=== PATIENT | female | born 1995 | race Caucasian/White ===

== ENCOUNTER 2017-09-01 11:46 | Inpatient (IN) | payer OTHER ==
[~2017-09-01] VITALS: Ht 157.5 cm; Wt 92.6 kg
[~2017-09-01 11:46] MED LIST: CYCLOBENZAPRINE10 MG PO; TRAMADOL HCL50 MG PO
--- NOTE | 2017-09-01 14:44 | NUR ---
PATIENT ADMITTED TO MED SURG. PATIENT REPORTS 4/10 EPIGASTRIC PAIN AND IS SLEEPY. SCD'S ARE ON. MOM IN ROOM WITH PATIENT. PATIENT HAS BEEN UP TO VOID AND HAS LR @ 125. PATIENT IS NOT NAUSEATED AT THIS TIME. DR. MOSQUEDA TO SEE PATIENT.
--- NOTE | 2017-09-01 15:28 | NUR ---
PATIENT GIVEN DILAUDID 0.5 FOR 7/10 EPIGASTRIC ABDOMINAL PAIN.
--- NOTE | 2017-09-01 17:35 | NUR ---
PATIENT RESTING IN BED, NPO, IVF, IV PAIN MEDICATIONS AND AWAITING DR. MOSQUEDA. PATIENT HAS BEEN WITHOUT NAUSEA. FAMILY IS IN ROOM. PATIENT HAS BEEN ABLE TO INTERMITTIANTLY NAP BETWEEN PAIN MEDICATION TIMES, PER MOM.
--- NOTE | 2017-09-01 17:45 | NUR ---
PT IS RESTING IN BED WITH CALL LIGHT IN REACH. PT IS ASKING ABOUT WHEN HER SURGERY WILL BE.
--- NOTE | 2017-09-01 18:39 | NUR ---
DR. MOSQUEDA IN TO SEE PATIENT. PATIENT MAY HAVE CLEAR LIQUIDS TONIGHT, NPO AT MIDNIGHT. PATIENT TO HAVE SURGERY TO FOLLOW TOMORROW.
--- NOTE | 2017-09-01 19:00 | NUR ---
SHIFT REPORT RECIEVED. PATIENT RESTING IN BED. FAMILY AT BEDSIDE. CALL LIGHT IN REACH.
--- NOTE | 2017-09-01 19:28 | NUR ---
PATIENT REPORTED 8/10 PAIN IN RUQ. PRN PAIN MEDS GIVEN PER ORDER BY BEHZAD RUEDA. CALL LIGHT IN REACH.
--- NOTE | 2017-09-01 19:59 | NUR ---
WENT OVER SURGERY CONSENT WITH PT. PT STATED UNDERSTANDING OF UPCOMING PROCEDURE. REQUESTED ICE WATER AND JELLO. RECEIVED BOTH, IS AWARE THAT SHE WILL NOT BE ABLE TO EAT OR DRINK AFTER MIDNIGHT. FRIEND ABI AT BEDSIDE. CALL LIGHT WITHIN REACH.
--- NOTE | 2017-09-01 20:16 | NUR ---
PT CALLED WANTING TO USE THE BATHROOM. AMBULATED WITHOUT COMPLAINTS OF DIZZINESS. VOIDING WITHOUT COMPLAINTS. STATED THAT HER PAIN IN RUQ IS "ALWAYS THERE" . CALL LIGHT WITH REACH. FRIEND AT BEDSIDE.
--- NOTE | 2017-09-01 20:58 | NUR ---
EVEING MEDS GIVEN PER ORDER. PATIENT AAOX3. PAIN IN RUQ AT 8/10, PRN PAIN MEDS GIVEN PER ORDER. LUNGS CLEAR, RR16. NO NAUSEA, BOWEL SOUNDS ACTIVE. IVF INFUSING, SITE WNL. FAMILY IS IN THE ROOM. PATIENT REQUESTED BROTH AND JELLO WHICH WERE GIVEN TO HER. NO FURTHER REQUEST, CALL LIGHT IN REACH.
--- NOTE | 2017-09-01 22:15 | NUR ---
PATIENT RESTING, EYES CLOSED. RR 14. MOTHER AT BEDSIDE. NO NEEDS AT THIS TIME. CALL LIGHT IN REACH.
--- NOTE | 2017-09-01 22:39 | NUR ---
PATIENT REQUESTED ASSISTANCE GOING TO THE BATHROOM. CORINA BELTRAN ASSISTED HER.
--- NOTE | 2017-09-01 22:57 | NUR ---
ASSISTED THE PATIENT ( STANDBY) TO THE BATHROOM AND BACK TO BED. CALL LIGHT WITHIN REACH.
--- NOTE | 2017-09-02 00:33 | NUR ---
PATIENT RESTING IN BED. TOOK ORAL FLUIDS FROM BEDSIDE. PATIENT HAS BEEN NPO SINCE BEFORE MIDNIGHT. REPORTED 9/10 PAIN, PRN PAIN MEDS GIVEN. NO FURTHER NEEDS AT THIS TIME. CALL LIGHT IN REACH.
--- NOTE | 2017-09-02 01:45 | NUR ---
PATIENT REQUESTED ASSISTANCE TO BATHROOM. PATIENT WAS SBA, APPEARED STEADY ON HER FEET. ASSISTED PATIENT BACK TO BED. REPORTED 8/10 PAIN, PRN PAIN MEDS GIVEN. PATIENT RESTING IN BED. CALL LIGHT IN REACH. SCDS IN PLACE. IVF INFUSING. NO FURTHER NEEDS AT THIS TIME.
--- NOTE | 2017-09-02 02:22 | NUR ---
NURSE NOTIFIED RE FABIENNEP.
--- NOTE | 2017-09-02 03:30 | NUR ---
PATIENT RESTING IN BED. 0200 VITALS FOUND AN ORAL TEMPURATURE OF 99.3. INSTRUCTED PATIENT TO SIT ON EDGE OF BED AND USE IS 5 TIMES. ORAL TEMPURATURE WAS 99.0. PATIENT REPORTED FEELING SLIGHTLY NAUSOUS. PRN ZOFRAN GIVEN PER ORDERS. PATIENT STATED THAT HER NAUSEA WAS IMPROVING AND SHE DID NOT FEEL LIKE SHE WAS GOING TO THROW UP. PATIENT STATES HER PAIN IS PRESENT BUT TOLERABLE AT THIS TIME. NO PRN PAIN MEDS REQUIRED AT THIS TIME. PATIENT LAYING BACK DOWN. CALL LIGHT IN REACH.
--- NOTE | 2017-09-02 04:14 | NUR ---
PATIENT RESTED ON AND OFF THROUGHOUT THE NIGHT. PAIN CONTROLLED, PRN PAIN MEDS GIVEN X4. PATIENT SLIGHTLY NAUSOUS AROUND 0320, PRN ZOFRAN GIVEN ONCE. NAUSEA RESOLVED. SBA W/AMBULATION. SCDS IN PLACE. IVF INFUSING. NPO AT MIDNIGHT.
--- NOTE | 2017-09-02 05:47 | NUR ---
PRE OP PROCEDURE CHECK LIST COMPLETED MUCH POSSIBLE. MORNING MEDICATIONS GIVEN PER ORDER. PATIENT PRE OP WIPE DOWM COMPLETED. PATIENTS PAPEROWRK PRINTED AND ATTACHED TO CHART FOR SURGERY. LR W/STRAIGHT TUBING HUNG. PATIENT DENIES ANY NAUSEA AT THIS TIME. PATIENT IS REQUESTING PAIN MEDICATION WHEN SHE IS BACK IN BED FROM USING THE RESTROOM.
--- NOTE | 2017-09-02 05:55 | NUR ---
PATIENT UP TO BATHROOM. STATES SHE IS FEELING NAUSOUS, PRN MEDS GIVEN. REATED PAIN AT 7/10, PRN PAIN MEDS GIVEN. PATIENT RESTING ON EDGE OF BED. WILL CONTINUE TO MONITOR.
--- NOTE | 2017-09-02 07:35 | NUR ---
REPORT RECIEVED FROM BEHZAD HAWKINS. PT UP IN THE BATHROOM DOING [place]. FAMILY IN ROOM. DENIES NEEDS ATT.
--- NOTE | 2017-09-02 08:21 | NUR ---
PT IN BED, FAMILY IN ROOM. DENIES QUESTIONS ABOUT PROCEDURE. WIPE DOWN DONE BY PT. LR HANGING. MEDS GIVEN.
--- NOTE | 2017-09-02 08:29 | NUR ---
pt off floor with kat emmanuel from surgery
--- NOTE | 2017-09-02 10:45 | NUR ---
PT AWAKE IN BED. DOING WELL. PICKED UP ROOM. GAVE PT STUFF TO DO HER SURGICAL WIPE DOWN. AM CARE DONE. CHANGED BEDDING AND EMTY GARBAGE.
--- NOTE | 2017-09-02 10:53 | NUR ---
[facility]02[facility]17 [facility] DECRE[facility] 6L VIA MASK.
--- NOTE | 2017-09-02 11:35 | NUR ---
PT TO FLOOR VIA STRETCHER WITH BEHZAD HAWLEY. PT AWAKE AND SLIGHTLY NAUSEOUS. PT DENIES PAIN ATT. FAMILY IN ROOM. ABLE TO SCOOT TO THE BED. IVF REATTACHED AND RUNNING WNL.
--- NOTE | 2017-09-02 12:29 | NUR ---
PT A LITTLE MORE AWAKE BUT STILL DROWSY. PT DENIES PAIN AND IS NO LONGER NAUSEOUS. FAMILY IN ROOM. VS STABLE. HAD PREVIOUSLY PLACED ON 1 L NC FOR DESATS WHILE SLEEPING. NOW REMOVED PT IS HOLDING HER SATS WITHOUT O2.
--- NOTE | 2017-09-02 14:11 | NUR ---
PT NOW EATING SOME TOMATO SOUP AND WILL BE GIVEN A PAIN PILL AFTER A FEW BITES. STATES THAT SHE FEELS SO MUCH BETTER AFTER SURGERY.
--- NOTE | 2017-09-02 14:52 | NUR ---
PT DOING WELL. FRESH ICE WATER. TOOK VITELS. TOOK TO BATHROOM.
--- NOTE | 2017-09-02 15:31 | NUR ---
PT EATING AND TAKING FLUIDS. TOLERATING WELL. RATES PAIN LOW AT 3/10
--- NOTE | 2017-09-02 17:02 | NUR ---
PT REPORTS MINIMAL PAIN AFTER ONE PERCOCET. DENIES CONCERNS ATT.
--- NOTE | 2017-09-02 18:18 | NUR ---
PT HAD SMALL AMT EMESIS AFTER SMELLING FOOD IN [place]. DENIES NEED FOR ZOFRAN. ASKED FOR TOMATO SOUP AGAIN.
--- NOTE | 2017-09-02 18:23 | NUR ---
PT HAD GOOD DAY. MINIMAL PAIN, GIVEN 1 PERCOCET. TOLERATING TOMATO SOUP. INDEPENDENT IN ROOM. DRESSING HAS SMALL AMT SHADOWING.
--- NOTE | 2017-09-02 19:10 | NUR ---
SHIFT REPORT RECIEVED. PATIENT RESTING IN BED. COMPLAINS OF NAUSEA AND PAIN. WARM BLANKET PROVIDED. WILL RETURN WITH PRN MEDS.
--- NOTE | 2017-09-02 19:48 | NUR ---
PRN PAIN MEDS GIVEN FOR PAIN RATED AT 8/10 IN ABD. PRN NAUSEA MEDS GIVEN. DISCUSSED FOOD OPTIONS WITH PATIENT BECAUSE SHE WANTS TO EAT BUT APPETITE IS DIMINISHED. PROTIEN DRINK PROVIDED. FRIENDS IN ROOM. CALL LIGHT IN REACH. WILL REASSESS.
--- NOTE | 2017-09-02 21:11 | NUR ---
PATIENT RESTING IN BED. ASSESSMENT COMPLETED AND COUMENTED. PATIENT REPORTS THAT NAUSEA HAS IMPROVED. PAIN IS REPORTED AT 4/10. ABD PAIN IS 2/10 BUT THE PATIENT HAS A SORE SHOULDER. HEAT PACK PROVIDED. LUNGS ARE CLEAR. PULSE OX, 99% ON RA. BOWEL SOUNDS ARE HYPOACTIVE. ABD IS TENDER, MILDLY DISTENDED. PATIENT REPORTS PASSING GAS. STERI STRIPS AT ALL FOUR LAP SITES HAVE A SMALL AMOUNT OF DRIED BLOODY DRAINAGE. THE UNBILICAL SITE IS COVERED WITH GAUZE. PATIENT IS INDEPENDENT IN THE ROOM AND STEADY ON HER FEET. PATIENT TOLERATED CRACKERS AND PROTEIN DRINK WITH NO MORE NAUSEA. EDUCATED PATIENT ON BOWEL CARE UPON DISCHARGE TO [facility] TO NARCOTIC USE AND ABD SURGERY. PATIENT HAS MODERATE UNDERSTANDING. NO FURTHER NEEDS AT THIS TIME. CALL LIGHT IN REACH.
--- NOTE | 2017-09-02 22:48 | NUR ---
PATIENT RESTING. EYES CLOSED. RR14. PULSE OX 97% ON RA.
--- NOTE | 2017-09-03 00:41 | NUR ---
PATIENT ALERTED STAFF TO INCREASED PAIN. RATED AT 7/10. PRN PAIN MEDS GIVEN. PATIENT RESTING IN BED. REQUEST PROTEIN DRINK, WHICH WAS GIVEN TO HER. DENIES NAUSEA. PULSE OX, 99% ON RA. NO FURTHER NEEDS. CALL LIGHT IN REACH.
--- NOTE | 2017-09-03 02:10 | NUR ---
PATIENT UP TO THE BATHROOM. REPORTS TO STAFF THAT SHE STARTED HER PERIOD. NEW UNDERWEAR AND A PAD. PATIENT REPORTS ABD PAIN IS TOLERABLE AT THIS TIME. DENIES NEED FOR PRN PAIN MEDS.
--- NOTE | 2017-09-03 03:30 | NUR ---
PATIENT RESTED WELL THROUGHOUT THE NIGHT. PAIN WELL CONTROLLED, PRN PAIN MEDS X2. REPORTED NAUSEA EARLIY IN SHIFT, PRN ZOFRAN X1. PULSE OX, O2 97-100% ON RA. IVF INFUSING. PATIENT TOLERATING ORAL FLUIDS AND SMALL AMOUNT OF FOOD. BOWEL SOUNDS ACTIVE. PATIENT PASSING GAS. INDEPENDENT IN ROOM. OUTPUT QS.
--- NOTE | 2017-09-03 05:37 | NUR ---
PATIENT RESTING. EYES CLOSED. RR 16, PULSE OX 99% ON RA.
--- NOTE | 2017-09-03 06:26 | NUR ---
PATIENT RESING IN BED. DENIES NEEDS AT THIS TIME. STATES THAT PAIN IS "FINE" RIGHT NOW, DENIES PRN PAIN MEDS. CALL LIGHT IN REACH. CUSTOM STOCK MAKER IN ROOM TO TAKE VITALS.
--- NOTE | 2017-09-03 07:27 | NUR ---
REPORT RECIEVED FROM BEHZAD HAWKINS. PT AWAKE AND READY TO GO HOME. STARTED PERIOD LAST NIGHT AND IS HAVING MENSTRUAL CRAMPS OTHERWISE PAIN IS WELL CONTROLLED. FAMILY IN ROOM.
--- NOTE | 2017-09-03 07:43 | NUR ---
ANSWERED CALL LIGHT PATIENT HAD TO GO TO THE BATHROOM ALSO BRUSHED TEETH AND WASHED FACE. NOW EATING BREAKFAST.
[2017-09-03] MEDS ORDERED: OXYCODON-ACETA1 EAC2 PO (08:28)
[2017-09-03] MEDS ORDERED: MOTRIN IB200 MG PO (08:29)
--- NOTE | 2017-09-03 09:36 | NUR ---
PT EDUCATION GIVEN. VS STABLE. PT VERBALIZED UNDERSTANDING. SCRIPTS GIVEN. TALKED TO PT ABOUT HER FOLLOW UP APPT AND ADVISED TO FOLLOW UP WITH A OBGYN FOR BAD PERIODS. WHEELED OUT IN CHAIR WITH MOTHER. IV REMOVED WNL.
--- NOTE | 2017-09-25 07:48 | OR ---
[facility] [address], [place] [address] Signed DATE OF PROCEDURE: 09/02/17 PREOPERATIVE DIAGNOSES Acute calculous cholecystitis. Obesity. POSTOPERATIVE DIAGNOSES Severe acute calculus cholecystitis. Obesity. PROCEDURES Laparoscopic cholecystectomy with intraoperative cholangiogram, prolonged, complicated, difficult. Directed fluoroscopy. SURGEON: Dangelo Mosqueda MD ANESTHESIA General endotracheal (Catherine Allred CRNA) and local 10 mL of 0.25% Marcaine with Epinephrine. INDICATION This 21-year-old white woman works at [employer] and is a patient of JUANITO Winchester. She has been having several months of back pain, was found on plain x-ray to have scoliosis. Her pain was attributed to that. In the past 5 days, she has been having increasing abdominal pain , nausea and vomiting and her persistent back pain. She is found upon emergency room evaluation on gallbladder ultrasound to have an inflamed gallbladder with at least 1 and possibly more gallstones. There is no sign of liver function abnormality or pancreatitis. She has been fluid resuscitated, given intravenous antibiotics, pain medications and now optimized for operation. This will include cholecystectomy preferred by laparoscopic approach. The risks of bleeding, infection, bile duct injury, need for open procedure, and other unforeseen complications were reviewed in detail. She understands and wished to proceed. FINDINGS Indeed, the gallbladder is markedly inflamed. It is very thickened. It could not be grasped and therefore had to have decompression. Bile decompressed was clean, however. Prolonged dissection was required for safe dissection of the triangle of Calot, but it was accomplished and intraoperative cholangiogram showed normal biliary anatomy, no sign of filling defect or other abnormality. The liver itself was reasonably normal. The Electronically Signed By: DANGELO MOSQUEDA MD 09/25/17 0748 PATIENT NAME: MADELYN ALLRED OPERATIVE REPORT DATE OF : [birth year] PHYSICIAN: DANGELO MOSQUEDA MD REPORT #: [id number] REPORT IS CONFIDENTIAL AND NOT TO BE RELEASED WITHOUT AUTHORIZATION [facility] [address] [facility] [address] [facility] [place] [address] Signed other organs were normal also. Two Endoloops were used to secure the cystic duct as it was markedly thickened and dilated. She tolerated the procedure well. DESCRIPTION OF PROCEDURE The patient was brought to the operating room, given a general endotracheal anesthetic. Preoperative Ancef had been ongoing, sequential compression device stockings used and heparin subcutaneously administered. After satisfactory general endotracheal anesthesia, the abdomen was prepared with Chlorhexidine solution and draped sterilely. An infraumbilical incision was made using an open Racquel cannula technique, pneumoperitoneum was achieved at level 14 mmHg of carbon dioxide gas. Intra-abdominal inspection showed no sign of ascites or carcinomatosis. The liver and gallbladder was obscured from view largely and omental adhesions were noted to the gallbladder. Three additional trocars were placed in usual configuration in the subxiphoid, right midclavicular, and right anterior axillary line. Using blunt dissection, the omentum was peeled off the gallbladder. A tense, distended and pinkish vogel appearing thickened gallbladder was noted. It could not be grasped in the usual way. On that basis, a needle decompressive device was used to decompress the bile from the gallbladder, green bile was noted. The puncture site was grasped and the gallbladder elevated. This revealed inflamed and edematous infundibulum. The common duct was noted several centimeters away from the area of dissection. Using blunt and electrocautery dissection, the triangle Calot was dissected free. A very thickened peritoneum was noted and an enlarged pericholecystic lymph node also seen. Ultimately, the cystic arterial branch was identified as was the cystic duct. The cystic duct was rather dilated it appeared. Cystic artery was divided and once the anatomy of the cystic duct well demonstrated, clip was attempted to be placed across the cystic duct. The thickened tissue and dilated duct could not accommodate a clip very easily. Clips were applied to the infundibulum of the gallbladder somewhat cephalad to this and a transverse choledochotomy made in a thickened duct. Retrograde milking of the duct did not show any stones. Laparoscopic instrument could be passed down the cystic duct. Using the Nicholson type cholangiocatheter, intraoperative cholangiography was then undertaken through the choledochotomy. Surgeon directed fluoroscopy was used to confirm free flow of contrast in biliary tree with prompt emptying into the duodenum, retrograde filling of the common hepatic and intrahepatic biliary radicles. There was no sign of filling defect or other abnormality. The cystic duct was generous in length. The catheter was removed and further dissection was undertaken on the duct to assure that an area of complete viability of the duct. Still, the duct was dilated and inflamed and on that basis, security with simple clips was deemed unlikely. On that basis, the cystic duct was transected as high as possible near the gallbladder and the stump of the duct gently grasped allowing for placement of 2 PDS Endoloops to the cystic duct. This provided great security. Electronically Signed By: DANGELO MOSQUEDA MD 09/25/17 0748 PATIENT NAME: MADELYN ALLRED OPERATIVE REPORT DATE OF : [birth year] PHYSICIAN: DANGELO MOSQUEDA MD REPORT #: [id number] REPORT IS CONFIDENTIAL AND NOT TO BE RELEASED WITHOUT AUTHORIZATION [facility] [address], [place] [address] Signed The gallbladder was then dissected free in a retrograde fashion using electrocautery. Marked inflammatory changes and dense adhesion to the capsule of the undersurface of the liver were noted. Dissection went without gross spillage of gallbladder contents. An Endobag was used to deliver the gallbladder out of the abdomen through the infraumbilical port site. The gallbladder was opened on the back table and found to have a marked inflammation of mucosa in 2 stones, 1 about 8 mm, the other 2 cm. The patient did wish to have her stone or stones if possible and a canvas products sales representative stone was sent with the specimen and other gathered for the patient. Irrigation was undertaken in subhepatic space. There was no sign of bile leak, bleeding or other problems. A drain was not needed. The 3 trocars removed under direct visualization showing no sign of bleeding. The 2 smaller 5 mm trocar sites on the right did have some application of electrocautery, there was not gross bleeding particularly. Good hemostasis was noted at conclusion. All irrigation fluid was suctioned free. The infraumbilical fascial incision was reapproximated with interrupted 0 Vicryl suture. All wounds copiously irrigated with saline solution. A 10 mL of 0.25% Marcaine with epinephrine was injected locally. The skin was closed with interrupted 3-0 Vicryl. Steri-Strips were applied. The patient was ultimately extubated and transferred to recovery in good condition and suffered no complication. Sponge, needle, instrument counts reported as correct x3. The operation was prolonged, complicated, and difficult lasting 3 times longer than usual due to the extent of inflammation, obesity and so on. MD ARNAUD Trivedi/Erich /[id number] cc: MD Dania Crespo PA-C Electronically Signed By: DANGELO MOSQUEDA MD 09/25/17 0748 PATIENT NAME: ALLREDMADELYN OPERATIVE REPORT DATE OF : [birth year] PHYSICIAN: DANGELO MOSQUEDA MD REPORT #: [id number] REPORT IS CONFIDENTIAL AND NOT TO BE RELEASED WITHOUT AUTHORIZATION
--- NOTE | 2017-09-25 08:27 | HP ---
[facility] [address], [place] [address] Signed REASON FOR ADMISSION Acute calculous cholecystitis. 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 She lives at home with her mother (who happens to be a classmate of mine from high school). She has been having for the past several months right-sided back pain. Evaluation by Dania Mock PA-C, at [facility] included a plain x-ray, which showed a scoliosis of the spine and her back pain was attributed to that cause. She presented to the emergency room today, however, with severe nausea and vomiting and right upper abdominal pain and mid epigastric pain, which has been going on for at least 4 days. She had been seen at [facility] in [place] on Thursday (today is Thursday) and she had a tentative diagnosis of possible stomach ulcer. She was prescribed Prilosec, but she did not take this. Evaluation in the emergency room included a gallbladder ultrasound, which showed findings consistent with acute cholecystitis including at least 1 large gallstone, apparently fixed in the infundibulum. Her lab studies showed normal liver enzymes and slightly elevated white count of 12.1. She is admitted for further evaluation and care. PAST MEDICAL HISTORY Does include treatment for tonsillitis within the past week or so. She has no sore throat at this time, but has been on Amoxicillin for treatment. Additionally, she has taken Tylenol No. 3 for her back pain. PAST SURGICAL HISTORY: She has never had surgery in the past. FAMILY HISTORY Consistent with essentially all female family members having had gallstones and cholecystectomy one time or another. SOCIAL HISTORY She is unmarried. Her last menstrual period was late in July. She works at [employer] as described and lives at home with her mother. PHYSICAL EXAMINATION GENERAL: Pleasant, overweight white woman, who looks to be not systemically toxic at this time. NECK: Trachea is midline. She has no hoarseness. There is no thyromegaly. CHEST: Clear. Electronically Signed By: DANGELO MOSQUEDA MD 09/25/17 0827 PATIENT NAME: MADELYN ALLRED HISTORY AND PHYSICAL DATE OF : [birth year] PHYSICIAN: DANGELO MOSQUEDA MD REPORT #: [id number] REPORT IS CONFIDENTIAL AND NOT TO BE RELEASED WITHOUT AUTHORIZATION [facility] [address], [place] [address] Signed HEART: Regular without murmur. ABDOMEN: Obese, but soft. Palpation reveals mild tenderness in the right subcostal area. EXTREMITIES: Showed no clubbing, cyanosis, or edema. LABORATORY DATA Labs today show a white count of 12.1, hematocrit 42.5, platelets 273,000. Chem profile is essentially normal. Creatinine is 0.5. Liver enzymes are normal as described. Amylase and lipase normal at 34 and 11 respectively. Urinalysis is normal. I do not see a beta hCG having been obtained, but will be obtained, however. IMAGING I have reviewed the images of the gallbladder ultrasound. The gallbladder does have a visible wall and there is at least 1 large relatively round appearing stone in the infundibulum. There is no sign of intrahepatic ductal dilatation. ASSESSMENT The patient has acute calculous cholecystitis. I discussed in detail with the patient and her mother in the presence of the nurse (Honey), the pathophysiology of this problem and recommended treatment to include cholecystectomy. Intraoperative cholangiography will be undertaken as well. The risks of bleeding, infection, bile duct injury, need for open procedure, need for common duct exploration, and of course failure to cure her symptoms were all reviewed in detail. Additional evaluation of her hypopharynx shows tonsils to be slightly enlarged, but they did not look to be purulent and she has no sign of erythema of the throat. She has been under treatment with amoxicillin for presumed tonsillitis. PLAN We will plan for continued IV antibiotic therapy, parenteral pain medication, and fluids resuscitation. She wants some liquids to drink and we will allow that tonight, but n.p.o. after midnight anticipating cholecystectomy tomorrow. MD ARNAUD Trivedi/Jitendral /[id number] Electronically Signed By: DANGELO MOSQUEDA MD 09/25/17 0827 PATIENT NAME: MADELYN ALLRED HISTORY AND PHYSICAL DATE OF : [birth year] PHYSICIAN: DANGELO MOSQUEDA MD REPORT #: [id number] REPORT IS CONFIDENTIAL AND NOT TO BE RELEASED WITHOUT AUTHORIZATION [address] [address] Signed cc: SANDIE Winchester MD Electronically Signed By: DANGELO MOSQUEDA MD 09/25/17 0827 PATIENT NAME: BRIGIDACEZARLEONARDASuman MIRANDA HISTORY AND PHYSICAL DATE OF : [birth year] PHYSICIAN: DANGELO MOSQUEDA MD REPORT #: [id number] REPORT IS CONFIDENTIAL AND NOT TO BE RELEASED WITHOUT AUTHORIZATION
--- NOTE | 2017-09-25 08:27 | DS ---
[facility] [address] [place], [place] [address] Signed DATE OF DISCHARGE 09/03/17 REASON FOR ADMISSION This obese 21-year-old, white woman works for [employer] and is involved in medical office management. She has been having several months of right-sided back pain. She has seen her provider Dania Mock PA-C and a plain x-ray showed scoliosis. She has been treated as her pain being related to that. She had an episode of rather severe back pain as well as associated abdominal pain, nausea and vomiting and presents to the emergency room where she was evaluated and found to have clinical findings of acute calculous cholecystitis. A gallbladder ultrasound was performed which showed a visible wall of the gallbladder dilation and at least 1 relatively large stone in the infundibulum. She is admitted for further evaluation and care. PERTINENT PHYSICAL EXAMINATION GENERAL: Showed a somewhat obese white woman, who looked to be in mild discomfort. NECK: Normal. CHEST: Clear. HEART: Regular without murmur. ABDOMEN: Obese, but soft. There is mild tenderness in the right subcostal area. Gallbladder ultrasound was reviewed. LAB STUDIES Showed a white count of 12.1, liver enzymes and chem profile were normal. Urinalysis normal. HOSPITAL COURSE She was admitted, given fluid resuscitation, parenteral pain medication, intravenous antibiotics and so on and on September 02, 2017, underwent laparoscopic cholecystectomy with intraoperative cholangiogram. The gallbladder was impressively inflamed. There were 2 stones, 1 large and 1 small. Cholangiogram was normal. The liver was normal. Postoperatively, she did quite well. She quickly began tolerating oral intake, had minimal incisional pain, and by time of the discharge is feeling quite well. She is scheduled to return to see me in approximately 4 weeks. She will return to work in 2 weeks. DISCHARGE MEDICATIONS Percocet 7.5/325 one to two p.o. q.4 hours p.r.n. pain, #20; also Motrin 600 mg p.o. q.6 hours p.r.n. pain, #30. Wound instructions, she will keep Steri-Strips on, she should lift no more than 20 pounds for the next 2 weeks. She is permitted to shower tomorrow. Electronically Signed By: DANGELO MOSQUEDA MD 09/25/17 0827 PATIENT NAME: MADELYN ALLRED DISCHARGE SUMMARY DATE OF : [birth year] PHYSICIAN: DANGELO MOSQUEDA MD REPORT #: [id number] REPORT IS CONFIDENTIAL AND NOT TO BE RELEASED WITHOUT AUTHORIZATION [address] [address] Signed MD ARNAUD Trivedi/Erich /[id number] cc: Dania Mock PA-C Electronically Signed By: DANGELO MOSQUEDA MD 09/25/17 0827 PATIENT NAME: MADELYN ALLRED DISCHARGE SUMMARY DATE OF : [birth year] PHYSICIAN: DANGELO MOSQUEDA MD REPORT #: [id number] REPORT IS CONFIDENTIAL AND NOT TO BE RELEASED WITHOUT AUTHORIZATION
== END 2017-09-03 09:40 | disposition home or self-care (01) | DRG 419 ==
LOC: ED 11:46 → MS 13:59
PROVIDERS: ADMIT Surgery
PROC: BF12YZZ Fluoroscopy of Gallbladder using Other Contrast (ICD-10-PCS; 2017-09-02)
PROC: 0FT44ZZ Resection of Gallbladder, Percutaneous Endoscopic Approach (ICD-10-PCS; principal; 2017-09-02 09:00)
DX: K80.00 Calculus of gallbladder with acute cholecystitis without obstruction (principal); E66.9 Obesity, unspecified
CPT/HCPCS: 00790; 74300; 76705; 80053; 81001; 82150; 83690; 84703; 85025; 96361; 96374; 96375; 96376; 99285; J0690; J1100; J1170; J1644; J1885; J2250; J2270; J2405; J2704; J3010; J7030; J7120; Q9967

== ENCOUNTER 2020-02-04 19:33 | Emergency (ER) | payer OTHER ==
[~2020-02-04] VITALS: Ht 157.5 cm; Wt 74.8 kg
[~2020-02-04 19:33] MED LIST changes: +MOTRIN IB200 MG PO; +OXYCODON-ACETA1 EAC2 PO
== END 2020-02-05 00:51 | disposition home or self-care (01) ==
LOC: ED 19:33
DX: O20.0 Threatened abortion (principal); Z3A.01 Less than 8 weeks gestation of pregnancy
CPT/HCPCS: 81001; 84702; 86900; 86901; 96372; 99284; J2790

== ENCOUNTER 2020-05-16 08:13 | Emergency (ER) | payer OTHER ==
[~2020-05-16] VITALS: Ht 157.5 cm; Wt 74.8 kg
[2020-05-16] MEDS ORDERED: PRENATAL ONE T1 EAC1 PO (08:24)
[2020-05-16] MEDS ORDERED: ONDANSETRON ODT8 MG PO (08:24)
== END 2020-05-16 10:31 | disposition home or self-care (01) ==
LOC: ED 08:13
PROC: 0HQFXZZ Repair Right Hand Skin, External Approach (ICD-10-PCS; principal; 2020-05-16)
DX: O9A.212 Injury, poisoning and certain other consequences of external causes complicating pregnancy, second trimester (principal); S61.411A Laceration without foreign body of right hand, initial encounter; Z23 Encounter for immunization; Z87.891 Personal history of nicotine dependence; Z3A.20 20 weeks gestation of pregnancy; W26.8XXA Contact with other sharp object(s), not elsewhere classified, initial encounter
CPT/HCPCS: 12001; 90471; 90715; 99282-25

== ENCOUNTER 2020-09-22 21:07 | Inpatient (IN) | payer OTHER ==
[~2020-09-22] VITALS: Ht 162.6 cm; Wt 82.6 kg
[~2020-09-22 21:07] MED LIST changes: +ONDANSETRON ODT8 MG PO; +PRENATAL ONE T1 EAC1 PO
--- NOTE | 2020-09-23 08:29 | PR ---
[facility] [address] [place], [place] [address] Signed PP Progress Notes Datetime Report Generated by CPN: 09/23/2020 08:29 SUBJECTIVE: [id number] Pain: Within Normal Limits Nausea/Vomiting: Denies Flatus: Yes Bowel Movement: No Vital Signs: [id number] Vital Signs: Reviewed Cardiovascular: Normal Respiratory: Normal Abdomen/Uterus: Normal Lochia: Normal Vulva/Perineum: Not Done Breasts: Not Done CVA Tenderness: Normal Extremities: Normal Incision: Not Applicable Progress: Normal Exam Comments: fundus firm U-2 nontender. IMPRESSION/PLAN/PROCEDURES: [id number] Impression: Normal Progression Plan: Continue Present Management Progress Notes: Pt seen and examined. Doing well. Ambulating, voiding, and tolerating full diet. Pain and lochia minimal. well. No questions or concerns. Reviewed Rh neg status and baby Rh+. Pt will received rhogam prior to discharge (anticipate d/c home tomorrow). Signing Physician: Ne Parra DO Copies: ~ *Electronically Signed* 09/23/20 0829 NE PARRA DO PATIENT NAME: MADELYN ALLRED RUBEN PROGRESS NOTE DATE OF : [birth year] PHYSICIAN: NE PARRA DO RPT #: [id number] REPORT IS CONFIDENTIAL AND NOT TO BE RELEASED WITHOUT AUTHORIZATION
--- NOTE | 2020-09-24 08:06 | PR ---
[facility] [place] [facility] [address] [facility] [place], [place] [address] Signed PP Progress Notes Datetime Report Generated by CPCarrington: 09/24/2020 08:06 SUBJECTIVE: [id number] Pain: Within Normal Limits Nausea/Vomiting: Denies Flatus: Yes Bowel Movement: No Vital Signs: [id number] Vital Signs: Reviewed; Within Normal Limits Cardiovascular: Not Done Respiratory: Not Done Abdomen/Uterus: Abnormal Lochia: Normal Vulva/Perineum: Not Done Breasts: Not Done CVA Tenderness: Not Done Extremities: Normal Incision: Not Applicable Progress: Normal Exam Comments: Fundus firm, NT @ U-1. IMPRESSION/PLAN/PROCEDURES: [id number] Impression: Normal Progression Plan: Discharge Procedures: Rhogam Progress Notes: Doing well. She is ready for D/C. Signing Physician: Gricelda Canchola MD Copies: ~ *Electronically Signed* 09/24/20805 GRICELDA CANCHOLA MD PATIENT NAME: MADELYN ALLRED PROGRESS NOTE DATE OF : [birth year] PHYSICIAN: GRICELDA CANCHOLA MD RPT #: [id number] REPORT IS CONFIDENTIAL AND NOT TO BE RELEASED WITHOUT AUTHORIZATION
== END 2020-09-24 11:50 | disposition home or self-care (01) | DRG 807 ==
LOC: FBCO 21:07 → FBC 21:30
PROVIDERS: ADMIT Obstetrics & Gynecology; ATTEND Obstetrics & Gynecology
PROC: 10E0XZZ Delivery of Products of Conception, External Approach (ICD-10-PCS; 2020-09-22)
PROC: 10907ZC Drainage of Amniotic Fluid, Therapeutic from Products of Conception, Via Natural or Artificial Opening (ICD-10-PCS; 2020-09-22)
PROC: 3E0234Z Introduction of Serum, Toxoid and Vaccine into Muscle, Percutaneous Approach (ICD-10-PCS; principal; 2020-09-23)
DX: O62.3 Precipitate labor (principal); Z37.0 Single live birth; O99.334 Smoking (tobacco) complicating childbirth; F17.290 Nicotine dependence, other tobacco product, uncomplicated; O69.81X0 Labor and delivery complicated by cord around neck, without compression, not applicable or unspecified; O26.893 Other specified pregnancy related conditions, third trimester; Z67.41 Type O blood, Rh negative; Z3A.38 38 weeks gestation of pregnancy; Z87.440 Personal history of urinary (tract) infections; Z86.19 Personal history of other infectious and parasitic diseases
CPT/HCPCS: 36415; 83030; 85027; 86850; 86870; 86900; 86901; A9270; J2590; J2790